=== PATIENT | male | born 1990 | race Two or more races ===

== ENCOUNTER 2019-06-07 14:02 | Emergency (ER) | payer OTHER ==
[~2019-06-07] VITALS: Ht 177.8 cm; Wt 72.6 kg
[2019-06-07 14:09] VITALS: BP 141/83
--- NOTE | 2019-06-07 14:47 | NUR ---
pranay machado at bedside
== END 2019-06-07 15:00 | disposition home or self-care (01) ==
LOC: ER 14:10
DX: I80.8 Phlebitis and thrombophlebitis of other sites (principal); K02.9 Dental caries, unspecified